=== PATIENT | female | born 1950 | race Caucasian/White ===

== ENCOUNTER 2024-08-30 11:35 | Emergency (ER) | payer OTHER, SELFPAY ==
[2024-08-30 11:45] VITALS: BP 171/96
[2024-08-30 12:15] LABS: % Basophils 1.2 % (0-2); % Eosinophils 2.5 % (0-6); % Immature Granulocytes 0.2 % (0-0.5); % Lymphocytes 39.1 % (20.5-51.1); % Monocytes 6.6 % (1.7-9.3); % Neutrophils 50.4 % (42.2-75.2); Absolute Basophils 0.1 10^3/uL (0-0.2); Absolute Eosinophils 0.1 10^3/uL (0-0.7); Absolute Lymphocytes 1.6 10^3/uL (1.2-3.4); Absolute Monocytes 0.3 10^3/uL (0.1-0.6); Absolute Neutrophils 2.1 10^3/uL (1.4-6.5); Hematocrit 36.4 % (37.0-47.0); Hemoglobin 11.7 g/dL (12.0-16.0); Mean Corp Hgb Conc. 32.1 g/dL (33.0-37.0); Mean Corpuscular Hgb 29.2 pg (27.0-31.0); Mean Corpuscular Volume 90.8 fL (81.0-99.0); Mean Platelet Volume 9.2 fL (7.4-10.4); Nucleated Red Blood Cells % 0 %; Platelet Count 276 10^3/uL (130-400); Red Blood Cell Count 4.01 10^6/uL (4.20-5.40); Red Cell Dist. Width 13.1 % (11.5-14.5); White Blood Cell Count 4.1 10^3/uL (4.8-10.8)
[2024-08-30 12:27] LABS: ALT (SGPT) 17 U/L (0-35); AST (SGOT) 23 U/L (14-36); Albumin 4.5 g/dl (3.5-5.0); Alkaline Phosphatase 121 U/L (38-126); Blood Urea Nitrogen 23 mg/dl (7-17); Calcium 9.6 mg/dl (8.4-10.2); Carbon Dioxide 27 mmol/L (22-30); Chloride 110 mmol/L (98-107); Glucose 125 mg/dl (70-99); Potassium 4.7 mmol/L (3.5-5.1); Sodium 144 mmol/L (135-145); Total Bilirubin 0.4 mg/dl (0.2-1.3); Total Protein 7.3 g/dl (6.3-8.2); eGFR > 60.00
--- NOTE | 2024-08-30 13:54 | ED.GENMED ---
History of Present Illness
General
Chief Complaint: Blood Pressure Problem
Time Seen by Provider: 08/30/24 13:54
History of Present Illness
History of Present Illness:
TIME OF INITIAL ENCOUNTER: 1:55 PM
HPI: This morning, the patient experienced vertiginous type of symptoms while she was trying to walk to the bathroom. She had some associated nausea. She has had similar but less severe episodes of vertigo in the past that usually quickly went
away. She was also concerned because she had blood pressure readings at home in the 170s which is much higher than she typically has. She does not have a history of high blood pressure. She takes no antihypertensives.
EXAM:
GENERAL: Well appearing in no distress
HEENT: Moist oral mucosa
CARDIOVASCULAR: No murmurs, normal heart rate, regular rhythm, No chest wall tenderness
PULMONARY: No respiratory distress, breath sounds are clear and equal
ABDOMEN: Soft with no peritoneal signs, no tenderness
NEUROLOGIC: Excellent strength all extremities, no coordination deficits, normal finger-nose bilaterally, negative Rosalva-Hallpike maneuver
PSYCHIATRIC: Appropriate mental status, normal insight and judgement
EXTREMITIES: Nontender, no edema, moves all extremities equally
SKIN: No rash, no lesions
NUMBER AND COMPLEXITY OF PROBLEMS ADDRESSED AT THE ENCOUNTER
� Chronic conditions affecting care: Hyperlipidemia, GERD, breast cancer
� Acute Exacerbation and/or Progression of Chronic Illness: This is an acute problem
� Differential Diagnosis includes: Positional vertigo, BPPV, intracranial pathology, doubt CVA as stroke scale is 0
AMOUNT AND/OR COMPLEXITY OF DATA TO BE REVIEWED AND ANALYZED
� I performed an independent evaluation of and my interpretation is:
EKG: Sinus 72, no acute ST abnormality
CT: CT head personally viewed and agree with radiologist interpretation that there is no acute abnormality.
X-rays:
Laboratory Studies: the white count is 4.1, hemoglobin 11.7, chemistries relatively unremarkable
Other:
� Review of other/old records: I reviewed records, the patient was seen here with gastroenteritis in 2022
� Clinical information was obtained by an independent historian:
� Prescriptions/Medications Considered but not given:
� Further testing considered but not performed:
RISK OF COMPLICATIONS AND/OR MORBIDITY OR MORTALITY OF PATIENT MANAGEMENT
� Social determinants of health affecting care: Lives at home
� Discussion with other providers:
� Escalation of care including admission/observation vs risk of discharge considered: Although patient is hypertensive, I do not feel that this is the clear cause for her symptoms. She has a nonfocal neurologic examination with
normal coordination. However given her age will obtain CT imaging for further evaluation.
ANY OTHER UPDATES:
3:30 PM: On reassessment, patient's blood pressure on recheck is 160/80. She states that her blood pressure is not elevated normally. She is to follow-up with PMD and she states she will occasionally check her blood pressure at home. We also
talked about the possibility of labyrinthitis. Will try meclizine.
Phy Exam
Physical Exam
Physical Exam:
See HPI
Course
Orders/Labs/Results
Orders:
Orders
08/30/24 11:50
Electrocardiogram (*1) Urgent
Reason for Study: Abdominal Pain
EKG- Treatment ONCE
08/30/24 12:04
Complete Blood Count/With Diff Urgent
Comprehensive Metabolic Panel Urgent
08/30/24 14:02
CT Head W/o Iv Contrast Urgent
Comment:
Reason For Exam: acute dizzy
Abnormal Lab Results
08/30/24
12:04
WBC 4.1 L 10^3/uL
(4.8-10.8)
RBC 4.01 L 10^6/uL
(4.20-5.40)
Hgb 11.7 L g/dL
(12.0-16.0)
Hct 36.4 L %
(37.0-47.0)
MCHC 32.1 L g/dL
(33.0-37.0)
Chloride 110 H mmol/L
(98-107)
BUN 23 H mg/dl
(7-17)
Creatinine 0.5 L mg/dL
(0.6-1.0)
Glucose 125 H mg/dl
(70-99)
08/30/24 12:04
08/30/24 12:04
Vital Signs
Initial and Last Documented VS:
Initial Vital Signs
Temp Pulse Resp BP Pulse Ox
36.8 C 77 20 171/96 99
08/30/24 11:45 08/30/24 11:45 08/30/24 11:45 08/30/24 11:45 08/30/24 11:45
Last Documented Vital Signs
Temp Pulse Resp BP Pulse Ox
36.8 C 68 11 160/86 100
08/30/24 11:45 08/30/24 15:22 08/30/24 14:15 08/30/24 15:19 08/30/24 15:22
*Critical Care Note
Total Time (30-74mins, 75-104mins- exclusive of procedures): Not Applicable
ED Attending Note
-
Portions of this chart may have been created with voice recognition software.� Occasional wrong word or��sound alike� substitutions may have occurred due to the inherent limitations of voice recognition software.
Discharge Plan
Departure
Patient Disposition: Home (Routine Discharge)
Date of Disposition: 08/30/24
Time of Disposition: 15:26
Patient with high blood pressure during this ER visit?: Yes
Discharge Problem:
Vertigo
Instructions: Vertigo (a type of dizziness), BLOOD PRESSURE
Prescriptions:
New
meclizine 25 mg tablet
25 mg PO BID PRN (Reason: dizziness) Qty: 20 0RF
No Action
citalopram 10 mg Tablet
10 mg PO DAILY
omeprazole [Prilosec] 20 mg Capsule,Delayed Release(Dr/Ec)
20 mg PO DAILY
rosuvastatin 10 mg Tablet
10 mg PO DAILY
Referrals:
Umer Hastings MD [Family Provider] -
Luis Espinosa MD [Active] - Follow up in 2-3 days
Activity Restrictions/Additional Instructions:
I recommend you follow-up with an ENT such as Dr. Espinosa. I sent a prescription for meclizine to your pharmacy. This may help your symptoms. Regarding the high blood pressure, although I do not feel that the blood pressure is causing the
dizziness, you should follow with your primary care doctor for reassessment and occasionally check your blood pressure at home as well. Your EKG and blood work is normal. CAT scan shows no acute abnormality. Return here if worse or other concerns.
Interventions
Interventions:
*Risk Screen - Suicide Last Done: 08/30/24 11:45
*General Assessment Last Done: 08/30/24 11:45
*Neglect/Abuse Screening Last Done: 08/30/24 11:45
*ED- Fall Risk Assessment Last Done: 08/30/24 14:00
*ED COVID-19 Vaccine History Last Done: 08/30/24 13:43
ED- Cardiac Assessment Last Done: 08/30/24 13:59
ED- Neurological Assessment Last Done: 08/30/24 13:59
ED- Pulmonary Assessment Last Done: 08/30/24 13:59
Discharge Date and Time
Print Language: URDU
[2024-08-30 13:56] VITALS: BP 183/83
[2024-08-30 13:57] VITALS: BP 183/83
[2024-08-30 14:01] VITALS: BP 172/90; BMI 22.1
[2024-08-30 15:19] VITALS: BP 160/86
== END 2024-08-30 16:01 | disposition home or self-care (01) ==
LOC: EMR 11:35
PROVIDERS: Emergency Medicine; EMERGENCY PHYSICIAN Emergency Medicine; FAMILY PHYSICIAN Family Medicine
DX: R42 Dizziness and giddiness (principal); R03.0 Elevated blood-pressure reading, without diagnosis of hypertension
CPT/HCPCS: 99284; 70450; 80053; 85025; 93005

== ENCOUNTER 2024-10-02 14:42 | Emergency (ER) | payer OTHER, SELFPAY ==
[2024-10-02 14:45] VITALS: BP 159/91
--- NOTE | 2024-10-02 15:52 | ED.GENMED ---
History of Present Illness
General
Chief Complaint: Dizziness
Source: patient
Exam Limitations: none
Time Seen by Provider: 10/02/24 15:35
History of Present Illness
History of Present Illness:
73-year-old female woke up with dizziness this morning. She felt unsteady on her feet resulting in holding onto the patel to walk. The room was spinning at times. She states the dizziness has since improved however she took her blood pressure at
home and it was as high as 180s over 111. She also notes ongoing chest discomfort underneath the left breast with skin constant aching in nature. The pain is not pleuritic. She not short of breath nauseous or diaphoretic. The pain does not
radiate. She does not take any medication for blood pressure. She has similar presentation with dizziness and elevated blood pressure a month ago. CT of her head was performed that which was negative.
Phy Exam
Physical Exam
Physical Exam:
General: Well-appearing female no acute respiratory distress
HEENT normocephalic atraumatic
Heart: Regular rate and rhythm
Lungs: Clear no wheeze
Neurologic exam: Alert and oriented finger-nose intact no nystagmus normal gait no drift
Extremities: No cyanosis
Abdomen is soft nontender
Course
Orders/Labs/Results
Orders:
Orders
10/02/24 14:47
EKG [Electrocardiogram (*1)] Urgent
Reason for Study: Vertigo / Dizzy
EKG- Treatment ONCE
10/02/24 15:49
CR Chest - 2 Views Urgent
Comment:
Reason For Exam: chest pain
10/02/24 16:18
Complete Blood Count/With Diff Urgent
Comprehensive Metabolic Panel Urgent
Lipase Urgent
Troponin I Urgent
Abnormal Lab Results
10/02/24
16:18
RBC 4.07 L 10^6/uL
(4.20-5.40)
MCHC 32.7 L g/dL
(33.0-37.0)
Chloride 110 H mmol/L
(98-107)
BUN 19 H mg/dl
(7-17)
Creatinine 0.5 L mg/dL
(0.6-1.0)
10/02/24 16:18
10/02/24 16:18
Vital Signs
Initial and Last Documented VS:
Initial Vital Signs
Temp Pulse Resp BP Pulse Ox
98.6 F 67 16 159/91 98
10/02/24 14:45 10/02/24 14:45 10/02/24 14:45 10/02/24 14:45 10/02/24 14:45
Last Documented Vital Signs
Temp Pulse Resp BP Pulse Ox
98.6 F 60 18 157/81 100
10/02/24 14:45 10/02/24 17:34 10/02/24 17:34 10/02/24 17:34 10/02/24 17:34
MDM/Problems Addressed
Differential Diagnosis Includes:
Elevated blood pressure readings with dizziness. Blood pressure out of triage is improved from what she was getting at home. Her symptoms are improved as well. No neurologic deficit. She had a CT scan for similar presentation 1 month ago which
was negative. No indication for repeat CT at this time. However, given the chest discomfort EKG was ordered which shows normal sinus rhythm will check labs including troponin lipase and x-ray.
*Pulse Oximetry
SaO2: 98
Oxygen Mode of Delivery: Room air
Patient hypoxic: no
*Critical Care Note
Total Time (30-74mins, 75-104mins- exclusive of procedures): Not Applicable
Update Note
Update Note:
Chest x-ray clear troponin undetectable. Patient reassessed feels much better blood pressure 150s over 80s. I would recommend follow-up with family doctor for recheck. No indication for admission.
ED Attending Note
-
Portions of this chart may have been created with voice recognition software.� Occasional wrong word or��sound alike� substitutions may have occurred due to the inherent limitations of voice recognition software.
Discharge Plan
Departure
Patient Disposition: Home (Routine Discharge)
Date of Disposition: 10/02/24
Time of Disposition: 17:38
Patient with high blood pressure during this ER visit?: No
Discharge Problem:
Elevated blood pressure reading
Instructions: High blood pressure in adults, Dizziness
Prescriptions:
No Action
citalopram 10 mg Tablet
10 mg PO DAILY
omeprazole [Prilosec] 20 mg Capsule,Delayed Release(Dr/Ec)
20 mg PO DAILY
rosuvastatin 10 mg Tablet
10 mg PO DAILY
meclizine 25 mg tablet
25 mg PO BID PRN (Reason: dizziness) Qty: 20 0RF
Referrals:
[facility], [Other]
Umer Hastings MD [Family Provider, Family Practice]
Activity Restrictions/Additional Instructions:
Please return here for worsening symptoms otherwise follow-up with your doctor for blood pressure recheck
Interventions
Interventions:
*Risk Screen - Suicide Last Done: 10/02/24 14:45
*General Assessment Last Done: 10/02/24 16:20
*Neglect/Abuse Screening Last Done: 10/02/24 14:45
*ED- Fall Risk Assessment Last Done: 10/02/24 16:20
*ED COVID-19 Vaccine History Last Done: 10/02/24 16:20
ED- Neurological Assessment Last Done: 10/02/24 16:20
Discharge Date and Time
Print Language: PERSIAN
[2024-10-02 16:27] LABS: % Basophils 1.1 % (0-2); % Eosinophils 2.3 % (0-6); % Immature Granulocytes 0.2 % (0-0.5); % Lymphocytes 37.2 % (20.5-51.1); % Monocytes 6.6 % (1.7-9.3); % Neutrophils 52.6 % (42.2-75.2); Absolute Basophils 0.1 10^3/uL (0-0.2); Absolute Eosinophils 0.1 10^3/uL (0-0.7); Absolute Monocytes 0.4 10^3/uL (0.1-0.6); Absolute Neutrophils 2.8 10^3/uL (1.4-6.5); Hemoglobin 12.1 g/dL (12.0-16.0); Mean Corp Hgb Conc. 32.7 g/dL (33.0-37.0); Mean Corpuscular Hgb 29.7 pg (27.0-31.0); Mean Corpuscular Volume 90.9 fL (81.0-99.0); Mean Platelet Volume 9.3 fL (7.4-10.4); Nucleated Red Blood Cells % 0 %; Platelet Count 249 10^3/uL (130-400); Red Blood Cell Count 4.07 10^6/uL (4.20-5.40); Red Cell Dist. Width 13.2 % (11.5-14.5); White Blood Cell Count 5.3 10^3/uL (4.8-10.8)
[2024-10-02 16:37] VITALS: BP 175/83
[2024-10-02 16:42] LABS: ALT (SGPT) 17 U/L (0-35); AST (SGOT) 23 U/L (14-36); Albumin 4.4 g/dl (3.5-5.0); Alkaline Phosphatase 97 U/L (38-126); Blood Urea Nitrogen 19 mg/dl (7-17); Calcium 9.9 mg/dl (8.4-10.2); Carbon Dioxide 28 mmol/L (22-30); Chloride 110 mmol/L (98-107); Glucose 81 mg/dl (70-99); Lipase 64 U/L (23-300); Sodium 143 mmol/L (135-145); Total Bilirubin 0.5 mg/dl (0.2-1.3); Total Protein 7.1 g/dl (6.3-8.2); eGFR > 60.00
[2024-10-02 16:54] LABS: Troponin I < 0.012 ng/ml
[2024-10-02 17:34] VITALS: BP 157/81
== END 2024-10-02 17:45 | disposition home or self-care (01) ==
LOC: EMR 14:42
PROVIDERS: Physician Assistant; EMERGENCY PHYSICIAN Emergency Medicine; FAMILY PHYSICIAN Family Medicine
DX: R03.0 Elevated blood-pressure reading, without diagnosis of hypertension (principal); R42 Dizziness and giddiness; R07.89 Other chest pain
CPT/HCPCS: 99285; 71046; 80053; 83690; 84484; 85025; 93005

== ENCOUNTER 2025-02-10 10:40 | Emergency (ER) | payer OTHER, SELFPAY ==
[2025-02-10 10:43] VITALS: BP 195/105
--- NOTE | 2025-02-10 13:23 | ED.GENMED ---
History of Present Illness
General
Chief Complaint: Head Injury
Time Seen by Provider: 02/10/25 10:57
History of Present Illness
History of Present Illness:
74-year-old female presents the emergency department for evaluation after mechanical fall that occurred after she left her doctor's office this morning. Fell forward and struck her head on the ground. No LOC. Does not take any blood thinners.
Reports mild neck pain as well as right hand pain
Review of Systems
Review of Systems
Allergies reviewed?: Yes
All Other Systems: ROS reviewed and negative except as documented in HPI and ROS
Phy Exam
Physical Exam
Physical Exam:
GEN: Well appearing, NAD, WDWN
HEENT: Large hematoma with central abrasion to the right forehead, minimal active bleeding, oral mucosa moist, no scleral icterus, no nasal congestion
Cardiac: Regular rate
Lung: No respiratory distress, no tachypnea
MSK: No gross deformity or injuries, no midline C-spine tenderness. Mild abrasion to the right palm with ecchymosis to the dorsum of the right hand in the 4th and 5th interdigital webspace
Skin: Good color, no pallor or jaundice, no rashes
Neuro: AO x3; CN II-XII grossly intact. BUE strength 5/5 in all verdugo, sensation intact and symmetric. BLE strength 5/5 in all verdugo, sensation intact and symmetric
Psych: Calm, cooperative
Course
Orders/Labs/Results
Orders:
Orders
02/10/25 10:46
CT Cervical Spine W/o Iv Contr Urgent
Comment:
Reason For Exam: Trauma
CT Head W/o Iv Contrast Urgent
Comment:
Reason For Exam: Trauma
02/10/25 11:36
CR Hand - Right Min 3 Views Urgent
Comment:
Reason For Exam: fall
Vital Signs
Initial and Last Documented VS:
Initial Vital Signs
Temp Pulse Resp BP Pulse Ox
98.5 F 66 16 195/105 100
02/10/25 10:43 02/10/25 10:43 02/10/25 10:43 02/10/25 10:43 02/10/25 10:43
Last Documented Vital Signs
Temp Pulse Resp BP Pulse Ox
98.5 F 66 16 195/105 100
02/10/25 10:43 02/10/25 10:43 02/10/25 10:43 02/10/25 10:43 02/10/25 13:24
MDM/Problems Addressed
MDM/Problems Addressed:
CT of the head and cervical spine obtained due to the mechanism of injury coupled with large cephalohematoma and these were both negative. Right hand x-rays were normal. Discussed supportive care
*Pulse Oximetry
SaO2: 100
Oxygen Mode of Delivery: Room air
Patient hypoxic: no
*Critical Care Note
Total Time (30-74mins, 75-104mins- exclusive of procedures): Not Applicable
ED Attending Note
-
Portions of this chart may have been created with voice recognition software.� Occasional wrong word or��sound alike� substitutions may have occurred due to the inherent limitations of voice recognition software.
Discharge Plan
Departure
Patient Disposition: Home (Routine Discharge)
Date of Disposition: 02/10/25
Time of Disposition: 13:24
Patient with high blood pressure during this ER visit?: No
Discharge Problem:
Fall, Forehead contusion
Instructions: Head Injury in Adults (DC)
Prescriptions:
No Action
citalopram 10 mg Tablet
10 mg PO DAILY
omeprazole [Prilosec] 20 mg Capsule,Delayed Release(Dr/Ec)
20 mg PO DAILY
rosuvastatin 10 mg Tablet
10 mg PO DAILY
meclizine 25 mg tablet
25 mg PO BID PRN (Reason: dizziness) Qty: 20 0RF
Referrals:
Umer Hastings MD [Family Provider, [facility]]
Interventions
Interventions:
*Risk Screen - Suicide Last Done: 02/10/25 10:46
*General Assessment Last Done: 02/10/25 10:46
*Neglect/Abuse Screening Last Done: 02/10/25 10:46
*Nursing Disposition Last Done: 02/10/25 13:43
ED- Neurological Assessment Last Done: 02/10/25 11:00
ED-Skin Assessment Last Done: 02/10/25 11:00
Discharge Date and Time
Discharge Date/Time: 02/10/25 13:43
Print Language: POLISH
== END 2025-02-10 13:43 | disposition home or self-care (01) ==
LOC: EMR 10:40
PROVIDERS: EMERGENCY PHYSICIAN Student in an Organized Health Care Education/Training Program; FAMILY PHYSICIAN Family Medicine
DX: S00.83XA Contusion of other part of head, initial encounter (principal); W19.XXXA Unspecified fall, initial encounter
CPT/HCPCS: 99284; 70450; 72125; 73130